=== PATIENT | female | born 1980 | race Caucasian/White ===

== ENCOUNTER 2019-11-15 10:59 | Emergency (ER) | payer BC ==
--- NOTE | 2019-11-15 11:12 | ED ---
Syncope/Near Syncope - HPI Summary HPI Summary: Patient is a 39 y/o F presenting to the ED via EMS for a chief complaint of syncope on 11/15/19. 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 On her way to the bathroom, she felt palpitations and had a syncopal episode that was witnessed by her students. She was in a standing position during the syncopal episode. Currently, patient has a laceration under the chin. On the night of 11/12/19, she had a syncopal episode that she attributed to drinking wine. She took an emergency contraceptive pill on 11/12/19. Patient states she is trying to get , but was advised to not take Lisinopril if attempting to get , so she took the emergency contraceptive to prevent . PMHx is significant for HTN for which she recently changed her medications. She changed from Lisinopril to another medication, but switched back to Lisinopril. Hx of prior multiple episodes of syncope, was seen by cardiology and had stress test 1 year ago reportedly normal. FMHx is significant for cardiac disease, but she denies a history of blood clots. Last tetanus around 2011. - History Of Current Complaint Time Seen by Provider: 11/15/19 11:04 Hx Obtained From: Patient Onset/Duration: Sudden Onset, Still Present Context: Witnessed, Loss Of Consciousness Aggravating Factor(s): Nothing Alleviating Factor(s): Spontaneous Resolution Associated Signs And Symptoms: Palpitations - Allergies/Home Medications Allergies/Adverse Reactions: Allergies Allergy/AdvReac Type Severity Reaction Status Date / Time No Known Allergies Allergy Verified 11/15/19 12:06 Home Medications: Home Medications DULoxetine CAP* [Cymbalta CAP*] 60 mg PO DAILY 11/15/19 [History Confirmed ] Lisinopril/Hydrochlorothiazide [Lisinopril-Hctz 20-25 mg Tab] 1 tab PO DAILY [History Confirmed 11/15/19] Propranolol 20 mg TAB [Inderal 20 mg TAB] 20 mg PO SEE INSTRUCTIONS PRN [History Confirmed 11/15/19] PMH/Surg Hx/FS Hx/Imm Hx Previously Healthy: Yes Endocrine/Hematology History: Denies: Hx Diabetes Cardiovascular History: Reports: Hx Hypertension Sensory History: Denies: Hx Legally Blind, Hx Deafness Opthamlomology History: Denies: Hx Legally Blind EENT History: Denies: Hx Deafness - Surgical History Surgical History: None Surgery Procedure, Year, and Place: None Infectious Disease History: No - Family History Known Family History: Positive: Cardiac Disease - Social History Occupation: Employed Full-time Lives: With Family Alcohol Use: Occasionally Hx Substance Use: No Substance Use Type: Reports: None Hx Tobacco Use: No Smoking Status (MU): Never Smoked Tobacco Review of Systems Positive: Palpitations Positive: other - Positive vaginal bleeding Positive: Other - Positive laceration under the chin Positive: Syncope All Other Systems Reviewed And Are Negative: Yes Physical Exam - Summary Physical Exam Summary: Constitutional: Well-developed, Well-nourished, Alert. (-) Distressed Skin: Warm, Dry. 2 cm laceration to the chin. HENT: Normocephalic; Atraumatic Eyes: Conjunctiva normal Neck: Musculoskeletal ROM normal neck. (-) JVD, (-) Stridor, (-) Nuchal rigidity Cardio: Rhythm regular, rate normal, Heart sounds normal; Intact distal pulses; Radial pulses are 2+ and symmetric. (-) Murmur Pulmonary/Chest wall: Effort normal. (-) Respiratory distress, (-) Wheezes, (-) Rales Abd: Soft, (-) tenderness, (-) Distension, (-) Guarding, (-) Rebound Musculoskeletal: (-) Edema Lymph: (-) Cervical adenopathy Neuro: Alert, Oriented x3 Psych: Mood Normal, anxious. Triage Information Reviewed: Yes Vital Signs Reviewed: Yes Procedures - Sedation Patient Received Moderate/Deep Sedation with Procedure: No - Laceration/Wound Repair 1 Location: face - Chin Description: Linear Anesthesia: 1.0%, Lido Length, Depth and Shape: 2 cm length Betadine Prep?: No Irrigated w/ Saline (ccs): 200 Laceration/Wound Explored: clean Suture Type: Prolene - 6-0 Number of Sutures: 5 Diagnostics - Laboratory Result Diagrams: 11/15/19 11:21 11/15/19 11:21 Lab Statement: Any lab studies that have been ordered have been reviewed, and results considered in the medical decision making process. - EKG 11:40 Cardiac Rate: NL - 64 BPM EKG Rhythm: Sinus Rhythm ST Segment: Normal Ectopy: None Summary of EKG Findings: An EKG at 11:40 reveals normal sinus rhythm with 64 BPM , T wave inversions in leads II, III, and, aVF with no prior EKG for comparison , nml axis, nml intervals. No STEMI. No acute changes. ED physician has reviewed and interpreted this EKG. Re-Evaluation - Re-Evaluation First Eval Re-Evaluation Time: 12:42 Change: Improved Comment: At 12:42, patient is feeling better and ambulating. Course/Dx Course Of Treatment: 39-year-old female with a history of prior syncope, hypertension presenting with syncopal episode. - Syncope. DDx: most likely vasovagal, as patient states she's had this in the past. Patient had a sensation of blood from her menstrual cycle. However given her hx HTN, also would benefit from further cardiology w/u. She thinks her BP has been dipping low 2/2 lisinopril, advised to call PCP for possible lower dose. Seizure: no witnessed seizure activity, incontinence or h/o seizures to suggest seizure today. Hypoxia and hypoglycemia less likely in this patient with normal sats and BG. Cardiac issue: electrical (dysarrhythmias, brugada, WPW, long QT). Less likely given no evidence of drop attack, no palpitations, no EKG findings to predispose to arrhythmias. bmildly wide QRS. Patient has had a recent negative stress, has been seen by cardiology. No CP, no STEMI on EKG; NSTEMI unlikely to cause brief cardiogenic shock in absence of other significant findings, so likely does not need full cardiac rule out with troponins and stress. Mechanical: outflow obstruction like HOCM or aortic stenosis, tamponade -less likely as no murmur, non-exertional, no hypertrophy on EKG. Vessels: PE, dissection, AAA. Clinical picture inconsistent, no abd pain, no pulsatile mass, symmetric pulses, no risk factors of PE. Volume issue: dehydration from vomiting/diarrhea/decreased PO, sepsis, GI bleed, ruptured ectopic or bleeding AAA. No signs of recent illness to suggest infection, no e/o anemia by history or PE, neg preg test neg so unlikely ectopic, orthostatics showed mild tachycardia when standing, given IVF. Neuro: No GRIJALVA, no personal or family h/o cerebral aneurysm, nml neuro exam, so this is unlikely ICH or sentinel bleed. Laceration repaired. Mckinley Head CT Rule. High Risk: 1. GCS < 15 at two hours after injury? no. 2. Suspected open or depressed skull fracture? no. 3. Basilar skull fracture (hemotympanum, "raccoon" eyes, cerebrospinal fluid otorrhea/rhinorrhea, Perez's sign)? no. 4. Vomiting, two or more episodes? no. 5. Age > 65? no. 6. Retrograde amnesia, 30 mins? no. 7. "Dangerous" Mechanism (PEDSvsAuto, Ejection, Fall >3ft, Fall > 5 stairs) no. . Citation: Lancet. 2000February 20;357(8543):1391-6. The Mckinley CT Head Rule for patients with minor head injury. Head imaging deferred. - Diagnoses Provider Diagnoses: Syncope, Chin laceration Discharge ED - Sign-Out/Discharge Documenting (check all that apply): Patient Departure - Discharge - Discharge Plan Condition: Stable Disposition: HOME Patient Education Materials: Care For Your Stitches (ED), Laceration (ED), Syncope (ED) Referrals: Raf Thakur MD [Primary Care Provider] - Joel Guzman MD [Medical Doctor] - Additional Instructions: You were seen in the emergency department for syncope. Your labs did not show causes. Please follow up with cardiology. Please follow up with your primary care doctor in next 2-3 days and return to emergency department for continued passing out, chest pain, shortness breath, worsening or concerning symptoms. It was a pleasure taking care of you today. You received sutures (stitches) today. These need to be removed in 5 days. Please keep the area dry and clean. Return to the emergency department or seek medical attention for drainage, redness to the area, increased pain around the laceration. Once the wound is healed, you can apply sunscreen to help with scar prevention. - Billing Disposition and Condition Condition: STABLE Disposition: Home - Attestation Statements Document Initiated by Scribe: Yes Documenting Scribe: Mirta Ramirez Provider For Whom Scribe is Documenting (Include Credential): Jakob Krishnan MD Scribe Attestation: I, Mirta Ramirez, scribed for Jakob Krishnan MD on 11/15/19 at 1404. Scribe Documentation Reviewed: Yes Provider Attestation: The documentation as recorded by the scribe, Mirta Ramirez accurately reflects the service I personally performed and the decisions made by me, Jakob Krishnan MD Status of Scribe Document: Viewed
[2019-11-15 11:29] LABS: ABS Basophils 0.1 10^3/ul (0-0.2); ABS Eosinophils 0.1 10^3/ul (0-0.6); ABS Lymphocytes 1.2 10^3/ul (1.0-4.8); ABS Monocytes 0.4 10^3/ul (0-0.8); ABS Neutrophils 8.2 10^3/ul (1.5-7.7); Eosinophil % 0.8 %; Hematocrit 33 % (35-47); Hemoglobin 11.2 g/dL (12.0-16.0); Lymphocyte % 12.3 %; Mean Corpuscular HGB Conc 33 g/dL (31-36); Mean Corpuscular Hemoglobin 29 pg (27-31); Mean Corpuscular Volume 87 fL (80-97); Mean Platelet Volume 8.2 fL (7.4-10.4); Nucleated Red Blood Cells % 0.1; Platelet Count 271 10^3/uL (150-450); Red Blood Count 3.84 10^6 /uL (3.70-4.87); Red Cell Distribution Width 17 % (10-15)
--- OUTSIDE RECORDS SUMMARY | 2019-11-15 11:49 | XMS REPORT | Continuity of Care Document ---
:1980 External Reference #:[id number] Author Name Lotus Baker MD Address [address] [place] [address] Care Team Providers Name Role Phone HCP given Care Team Information Communication Consultant Unavailable Problems Description No Information Available Social History Type Date Description Comments Sex Unknown Tobacco Use Reviewed: 01/20/17 Never Smoked Cigarettes Smoking Status Reviewed: 10/26/19 Never Smoked Cigarettes ETOH Use Occasionally consumes 1-2 glasses of alcohol wine/night Tobacco Use Start: Unknown Patient has never smoked Exercise 02/24/2017 Exercises regularly runs 3 miles/day and Type/Frequency a long run once/wk. Goes to the gym when it is colder. Allergies, Adverse Reactions, Alerts Description No Known Drug Allergies Medications Active Medications SIG Qnty Indications Ordering Provider Date Lisinopril-Hydrochlor 1 every morning 90tabs I10 Raf Thakur, 2019 othiazide for bp control M.DMegan 20-25mg Tablets Fiber Choice 3 tabs po daily Unknown 01/19/2017 [facility] Duloxetine HCL Take One Capsule 30caps F34.1 Raf Thakur, 12/18/2016 60mg By Mouth Daily M.DMegan Caps DR Gregory For Mood F41.1 Propranolol HCL prn for public speaking F41.1 Unknown 12/18/2016 20mg Tablets History Medications Hydrochlorothiazide take 1 tablet 90tabs I10 Blaze, 06/02/2019 - 25mg Tablets every morning Kevin Carbone 10/24/2019 for high blood pressure Immunizations CPT Code Status Date Vaccine Lot # [id number] Given 10/25/2018 Influenza Vaccine Quadrivalent Preser/Antibiotic [id number] Free Im Use 59974 Given 08/18/2011 Adacel or Boostrix, TDaP Vital Signs Date Vital Result Comment 10/24/2019 2:22pm BP Systolic 160 mmHg BP Diastolic 102 mmHg BP Systolic Recheck 156 mmHg BP Diastolic Recheck 100 mmHg Height 64.25 inches 5'4.25" Weight 119.00 lb BMI (Body Mass Index) 20.3 kg/m2 06/02/2019 8:50am BP Systolic 106 mmHg BP Diastolic 70 mmHg Weight 120.00 lb Last Menstrual Period [id number] Results Test Acquired Date Facility Test Result H/L Range Note Laboratory test 06/02/2019 [facility] HCG 6621.00 1 finding [phone] mIU/mL Laboratory test 06/02/2019 In House Test Positive finding Urine 1 <5.0 Negative 5.0 - 25.0 Indeterminate (Repeat testing recommended after 72 hours) >25.0 Positive Perimenopausal women can display HCG levels of up to 20 mIU/mL Procedures Description No Information Available Medical Devices Description No Information Available Encounters Type Date Location Provider Dx Diagnosis Office Visit 10/24/2019 Main Office Lotus Baker MD I10 Essential ( primary) 2:15p hypertension R01.1 Cardiac murmur, unspecified Z68.20 Body mass index (BMI) 20.0-20.9, adult Office Visit 06/02/2019 8:40a Main Office Mily Ricks R35.0 Frequency of P.A. micturition I10 Essential (primary) hypertension F41.1 Generalized anxiety disorder Z32.01 Encounter for test, result positive Assessments Date Code Description Provider 10/24/2019 I10 Essential (primary) hypertension Lotus Baker MD 10/24/2019 R01.1 Cardiac murmur, unspecified Lotus Baker MD 10/24/2019 Z68.20 Body mass index (BMI) 20.0-20.9, adult Lotus Baker MD 06/02/2019 R35.0 Frequency of micturition Mily Ricks P.A. 06/02/2019 I10 Essential (primary) hypertension Mily Ricks P.A. 06/02/2019 F41.1 Generalized anxiety disorder Mily Ricks P.A. 06/02/2019 Z32.01 Encounter for test, result positive Sean Devi Plan of Treatment 06/02/2019 - Mily Ricks P.A.R35.0 Frequency of [id number] Essential ( primary) hypertensionNew Medication:Hydrochlorothiazide 25 mg - take 1 tablet every morning for high blood pressureComments:Follow up:stop the lisinopril and hctz start the new HCTZF41.1 Generalized anxiety nojmzozcZ14.01 Encounter for test, result positive Functional Status Description No Information Available Mental Status Description No Information Available Referrals Refer to Dr Reason for Referral Status Appt Date HCP given Created 39 yo woman with hypertension for preconceptual care at [facility] [address] [phone]
[2019-11-15 11:52] LABS: HCG Pregnancy 1.36 mIU/mL
[2019-11-15 12:00] LABS: Albumin 4.5 g/dL (3.2-5.2); Albumin/Globulin Ratio 1.9 (1-3); BUN/Creatinine Ratio 9.5 (8-20); Calcium 9.1 mg/dL (8.6-10.3); EGFR African American 105.7 (>60); EGFR Non-African American 87.4 (>60); Globulin 2.4 g/dL (2-4); Potassium 3.3 mmol/L (3.5-5.0); Total Bilirubin 0.4 mg/dL (0.2-1.0); Total Protein 6.9 g/dL (6.4-8.9)
[2019-11-15] MEDS ORDERED: Potassium Chlor TAB* 20 MEQ TAB.ER PO ONE (12:09)
[2019-11-15] MEDS ORDERED: Bacitracin OINTMENT* 0.5% 0.5 oz TUBE TOPICAL ONE (13:02)
[2019-11-15 15:04] VITALS: BP 122/84
== END 2019-11-15 15:02 | disposition home or self-care (01) ==
LOC: ED 10:59
DX: S01.81XA Laceration without foreign body of other part of head, initial encounter (principal); R55 Syncope and collapse; W18.30XA Fall on same level, unspecified, initial encounter; Y92.219 Unspecified school as the place of occurrence of the external cause; Y99.0 Civilian activity done for income or pay; I10 Essential (primary) hypertension; Z79.899 Other long term (current) drug therapy
CPT/HCPCS: 12011; 36415; 80053; 84702; 85025; 85379; 93005; 99283; A9270-GY

== ENCOUNTER 2019-11-21 16:02 | Emergency (ER) | payer BC ==
[2019-11-21 17:11] VITALS: BP 123/80
--- NOTE | 2019-11-21 17:28 | UC ---
HPI Wound/Suture Re-check - HPI Summary HPI Summary: Patient is a 39yo female presenting to have sutures removed from chin. Denies pain, redness, warmth, drainage, fever. States she thinks wound healed well. - History Of Current Complaint Chief Complaint: UCGeneralIllness Stated Complaint: SUTURE REMOVAL Hx Obtained From: Patient Hx Last Menstrual Period: 11/12/19 Pain Intensity: 0 - Allergies/Home Medications Allergies/Adverse Reactions: Allergies Allergy/AdvReac Type Severity Reaction Status Date / Time No Known Allergies Allergy Verified 11/21/19 17:11 PMH/Surg Hx/FS Hx/Imm Hx Cardiovascular History: Hypertension - Surgical History Surgical History: None Surgery Procedure, Year, and Place: None - Family History Known Family History: Positive: Cardiac Disease - Social History Alcohol Use: Occasionally Substance Use Type: None Smoking Status (MU): Never Smoked Tobacco Review of Systems All Other Systems Reviewed And Are Negative: No Constitutional: Positive: Negative Skin: Positive: Negative Respiratory: Positive: Negative Cardiovascular: Positive: Negative Gastrointestinal: Positive: Negative Musculoskeletal: Positive: Negative Physical Exam - Summary Physical Exam Summary: Vital Signs Reviewed: Yes A+Ox3, no distress Eyes: Conjunctiva Clear ENT: Hearing grossly normal neck: supple Respiratory: Positive: No respiratory distress, No accessory muscle use Cardiovascular: skin color reflect adequate perfusion Musculoskeletal Exam: OLIVA x 4 without difficulty Neurological: Positive: Alert, ambulatory without difficulty Psychological: Positive: Normal Response To Family Skin: Positive: 1.5cm healed linear laceration with 5 intact sutures noted on chin, no erythema or warmth, no drainage, no rash, no ecchymosis Vital Signs: Initial Vital Signs Temp 98.7 F 11/21/19 17:07 Pulse 64 11/21/19 17:07 Resp 12 11/21/19 17:07 BP 123/80 11/21/19 17:07 Pulse Ox 100 11/21/19 17:07 Course/Dx - Course Course Of Treatment: I removed 5 sutures from healing chin laceration. No s/s of infection. Instructed to return if she experiences and sign of infection. Patient voiced understanding and agreed with treatment plan. - Diagnosis Provider Diagnosis: Encounter for removal of sutures Discharge ED - Sign-Out/Discharge Documenting (check all that apply): Patient Departure All imaging exams completed and their final reports reviewed: No Studies - Discharge Plan Condition: Stable Disposition: HOME Referrals: Raf Thakur MD [Primary Care Provider] - Additional Instructions: You had 5 stitches removed today. Continue to wash gently with soap and water daily. Return if you notice any redness, warmth, swelling, drainage, or you develop a fever. - Billing Disposition and Condition Condition: STABLE Disposition: Home
== END 2019-11-21 17:42 | disposition home or self-care (01) ==
LOC: UCEAST 16:02
DX: Z48.02 Encounter for removal of sutures (principal); I10 Essential (primary) hypertension